=== PATIENT | female | born 1955 | race Caucasian/White ===

== ENCOUNTER → 2016-09-25 | Outpatient (CLI) | payer OTHER ==
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
== END | disposition home or self-care (01) ==
LOC: RADMRIMAIN 15:35
PROVIDERS: ATTEND Family Medicine
DX: R90.82 White matter disease, unspecified (principal)
CPT/HCPCS: 70551

== ENCOUNTER → 2017-03-31 | Outpatient (CLI) | payer OTHER ==
--- NOTE | 2017-04-01 08:17 | MM ---
Reason for exam: screening (asymptomatic). Last mammogram was performed 8 years and 9 months ago. History: Family history of breast cancer in 2 aunts and breast cancer in grandmother. Implant Removal of both breasts, 1980. Physical Findings: Nurse did not find any significant physical abnormalities on exam. MG Screening Mammo w CAD Bilateral CC and MLO view(s) were taken. Prior study comparison: July 12, 2008, bilateral digital screening mammogram. May 19, 2005, mammogram, performed at [facility]. The breast tissue is heterogeneously dense. This may lower the sensitivity of mammography. No suspicious abnormality in the left breast. Superior right breast asymmetry over the pectoralis muscle at posterior depth. These results were verbally communicated with the patient and result sheet given to the patient on 03/31/17. ASSESSMENT: Incomplete: need additional imaging evaluation, BI-RAD 0 RECOMMENDATION: Special view mammogram of the right breast. If lesion persists on supplemental views, image directed ultrasound is recommended. [facility] will attempt to contact patient to return for supplemental views and ultrasound if indicated.
--- NOTE | 2017-04-01 08:19 | MM ---
Reason for exam: additional evaluation requested from abnormal screening. Last mammogram was performed 8 years and 9 months ago. History: Family history of breast cancer in 2 aunts and breast cancer in grandmother. Implant Removal of both breasts, 1980. Physical Findings: Nurse did not find any significant physical abnormalities on exam. MG Work Up Mamm w CAD RT LM, XCCL, and MLO view(s) were taken of the right breast. Prior study comparison: July 12, 2008, bilateral digital screening mammogram. May 19, 2005, mammogram, performed at [facility]. The breast tissue is heterogeneously dense. This may lower the sensitivity of mammography. Superior breast asymmetry improves on spot compression and appears as fibroglandular tissue. Precautionary ultrasound was performed. These results were verbally communicated with the patient and result sheet given to the patient on 03/31/17. ASSESSMENT: Incomplete: need additional imaging evaluation, BI-RAD 0 RECOMMENDATION: Ultrasound of the right breast. (upper outer quadrant)
--- NOTE | 2017-04-01 08:25 | USB ---
Reason for exam: additional evaluation requested from abnormal screening. History: Family history of breast cancer in 2 aunts and breast cancer in grandmother. Implant Removal of both breasts, 1980. US Breast Workup Limited RT Right breast ultrasound demonstrates no cystic or solid lesion seen. No cystic or solid masses. No suspicious sonographic finding. These results were verbally communicated with the patient and result sheet given to the patient on 03/31/17. ASSESSMENT: Negative, BI-RAD 1 RECOMMENDATION: Return to routine screening mammogram schedule for both breasts.
== END | disposition home or self-care (01) ==
LOC: RADMAMWWP 14:45
PROVIDERS: ATTEND Family Medicine
DX: Z12.31 Encounter for screening mammogram for malignant neoplasm of breast (principal); R92.8 Other abnormal and inconclusive findings on diagnostic imaging of breast
CPT/HCPCS: 76642; G0202; G0206

== ENCOUNTER → 2017-07-01 | Outpatient (CLI) | payer OTHER ==
--- NOTE | 2017-07-01 16:04 | CT ---
EXAMINATION TYPE: CT brain wo con DATE OF EXAM: 07/01/2017 COMPARISON: 04/29/2016 INDICATION: Headache, dizziness and visual changes. DLP: 1122.10 mGycm, Automated exposure control for dose reduction was used. CONTRAST: None CT of the brain is performed utilizing 3 mm thick sections through the posterior fossa and 3 mm thick sections through the remaining calvarium. Study is performed within 24 hours of arrival to the hosp [facility]. No abnormal hyperdensity is present to suggest an acute intracranial hemorrhage. No mass lesion is evident. No acute infarcts are evident. Ventricles and sulci are appropriate for the patient age. Paranasal sinuses and mastoid air cells within the [id number] are clear. IMPRESSIONS: 1. Normal CT Brain
== END | disposition home or self-care (01) ==
LOC: RADCTMAIN 15:22
PROVIDERS: ATTEND Psychiatry & Neurology Neurology
DX: R51 Headache (principal); H53.8 Other visual disturbances
CPT/HCPCS: 70450

== ENCOUNTER → 2017-07-17 | Outpatient (CLI) | payer OTHER ==
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
== END | disposition home or self-care (01) ==
LOC: RADMRIMAIN 16:06
PROVIDERS: ATTEND Psychiatry & Neurology Neurology
DX: M48.04 Spinal stenosis, thoracic region (principal); M40.205 Unspecified kyphosis, thoracolumbar region; M46.94 Unspecified inflammatory spondylopathy, thoracic region; S32.029A Unspecified fracture of second lumbar vertebra, initial encounter for closed fracture; Z98.890 Other specified postprocedural states
CPT/HCPCS: 82565; 72157; 72158; 36415; A9581

== ENCOUNTER 2017-08-14 14:40 | Emergency (ER) | payer OTHER ==
[2017-08-14 15:07] VITALS: RESP 16
--- NOTE | 2017-08-14 15:21 | ED ---
General Adult HPI - General Chief complaint: Back Pain/Injury Stated complaint: Back pain Time Seen by Provider: 08/14/17 15:12 Source: patient, RN notes reviewed Mode of arrival: wheelchair Limitations: no limitations - History of Present Illness Initial comments: Patient 61-year-old female who presents emergency room today with chief complaint of increased lower back pain over the last few weeks. She does admit that she was doing her exercises at home a few weeks ago when she was slowing herself down to the floor in her back hit the edge of the bed. She does have a history of scoliosis and she states there is a phone that sticks out and she is more tender now. She states it seems to be in a different spot. Patient states that over the past 3 weeks has not gotten any better. Patient denies any other symptoms. Patient denies any recent fever, chills, shortness of breath , chest pain, numbness or tingling, headaches or visual changes, or any other complaints. - Related Data Home Medications Medication Instructions Recorded Confirmed ALPRAZolam 1 mg PO Q4H PRN 09/18/14 08/14/17 Methadone [Dolophine] 20 mg PO TID 09/18/14 08/14/17 Simvastatin [Zocor] 20 mg PO HS 09/18/14 08/14/17 cloNIDine HCL [Catapres] 0.2 mg PO DAILY 04/29/16 08/14/17 Butalb/APAP/Caff 50-325-40Mg 1 tab PO Q4H PRN 08/14/17 08/14/17 [Fioricet 50-325-40] DULoxetine HCL [Cymbalta] 30 mg PO HS 08/14/17 08/14/17 DULoxetine HCL [Cymbalta] 60 mg PO DAILY 08/14/17 08/14/17 Promethazine [Phenergan] 25 mg PO Q4HR PRN 08/14/17 08/14/17 Ranitidine HCl [Zantac] 150 mg PO BID 08/14/17 08/14/17 Topiramate [Topamax] 50 mg PO BID 08/14/17 08/14/17 Allergies Allergy/AdvReac Type Severity Reaction Status Date / Time nickel Allergy Itching Verified 08/14/17 15:23 Review of Systems ROS Statement: Those systems with pertinent positive or pertinent negative responses have been documented in the HPI. ROS Other: All systems not noted in ROS Statement are negative. Past Medical History Past Medical History: Hyperlipidemia, Hypertension History of Any Multi-Drug Resistant Organisms: None Reported Past Surgical History: Back Surgery, Orthopedic Surgery Past Psychological History: No Psychological Hx Reported Smoking Status: Former smoker Past Alcohol Use History: None Reported Past Drug Use History: Marijuana General Exam - General Exam Comments Initial Comments: General: The patient is awake and alert, in no distress, and does not appear acutely ill. Eye: Pupils are equal, round and reactive to light, extra-ocular movements are intact. No nystagmus. There is normal conjunctiva bilaterally. No signs of icterus. Ears, nose, mouth and throat: There are moist mucous membranes and no oral lesions. Neck: The neck is supple, there is no tenderness or JVD. Cardiovascular: There is a regular rate and rhythm. No murmur, rub or gallop is appreciated. Respiratory: Lungs are clear to auscultation, respirations are non-labored, breath sounds are equal. No wheezes, stridor, rales, or rhonchi. Musculoskeletal: Normal ROM. Scoliosis to the right. Patient does have tenderness over T8 to T10. Strength 5/5. Sensation intact. Pulses equal bilaterally 2+. Neurological: A&O x 3. CN II-XII intact, There are no obvious motor or sensory deficits. Coordination appears grossly intact. Speech is normal. Skin: Skin is warm and dry and no rashes or lesions are noted. Psychiatric: Cooperative, appropriate mood & affect, normal judgment. Limitations: no limitations Course Vital Signs 08/14/17 15:04 Temperature 97.8 F Pulse Rate 78 Respiratory 16 Rate Blood Pressure 107/54 O2 Sat by Pulse 99 Oximetry Medical Decision Making - Medical Decision Making Case discussed in detail with attending physician Dr. Finn. Patient's x-ray of thoracic spine shows no acute changes. X-rays of the lumbar spine show postoperative change. Chronic-appearing severe compression deformity with vertebroplasty at L2. Patient denies any bowel or bladder incontinence retention. Denies any saddle anesthesia. Denies any lumbar radiculopathy. At this time patient will be discharged home to follow-up with her family doctor and surgeon in the next 2 days. Advised that she should have a MRI obtained for further evaluation. Advised that she should return to the emergency room if any symptoms increase worsen or for any other concerns. Patient and family states understanding. Disposition Clinical Impression: Low back pain Disposition: HOME SELF-CARE Condition: Good Instructions: Acute Low Back Pain (ED) Additional Instructions: Please follow-up with the orthopedic surgeon and family doctor over the next 2 days as discussed. As discussed need of MRI. Please return to emergency room if the symptoms increase or worsen or for any other concerns. Referrals: Marisol Villalobos MD [Primary Care Provider] - 1-2 days Time of Disposition: 16:41
--- NOTE | 2017-08-14 16:04 | XR ---
EXAM TYPE: LUMBAR SPINE X RAY SERIES COMPARISON: 06/02/2016 HISTORY: Pain TECHNIQUE: 4 views are submitted. FINDINGS: Postsurgical changes are noted. There is a severe compression deformity of vertebroplasty the approxi mate level of L2. This is new from the prior exam. Atherosclerotic change of the aorta noted. There i s diffuse osteopenia. Degenerative disc disease at all levels. IMPRESSION: 1. Postoperative change. 2. Chronic appearing severe compression deformity with vertebroplasty L2. Correlate clinically as por tions of the vertebroplasty material appear to extend toward the disc space.
--- NOTE | 2017-08-14 16:05 | XR ---
EXAMINATION TYPE: XR thoracic spine complete DATE OF EXAM: 08/14/2017 CLINICAL HISTORY: Mid back pain for years. TECHNIQUE: Frontal, lateral, and swimmer's view of thoracic spine are obtained. COMPARISON: Thoracic spine MRI July 17, 2017. FINDINGS: Thoracic spine redemonstrate stable and straightened alignment distally without evidence of acute fracture or dislocation. There is anterior fusion plate C6-T1 level with artificial disc mater ial redemonstrated. Posterior interpedicular rods and screws transfixing T12-L1 levels redemonstrated . Vertebral body heights and disc space heights are preserved in between. IMPRESSION: No acute fracture or dislocation is seen in the thoracic spine. No significant change fr om recent MRI.
[2017-08-14] MEDS ORDERED: MORPHINE SULFATE 4 MG/ML SYRINGE IM STA (16:37)
[2017-08-14 17:02] VITALS: BP 106/60; PULSE 65; TEMP 97.9
== END 2017-08-14 17:00 | disposition home or self-care (01) ==
LOC: EC 14:40
DX: M54.5 Low back pain (principal); E78.5 Hyperlipidemia, unspecified; I10 Essential (primary) hypertension; M41.9 Scoliosis, unspecified; Z87.891 Personal history of nicotine dependence; Z79.899 Other long term (current) drug therapy; Z88.8 Allergy status to other drugs, medicaments and biological substances; Z98.890 Other specified postprocedural states
CPT/HCPCS: 72072; 72100; 99283; 96372; J2270

== ENCOUNTER → 2017-08-26 | Outpatient (CLI) | payer OTHER ==
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
== END | disposition home or self-care (01) ==
LOC: RADCTMAIN 13:49
PROVIDERS: ATTEND Psychiatry & Neurology Neurology
DX: M48.04 Spinal stenosis, thoracic region (principal); M43.8X6 Other specified deforming dorsopathies, lumbar region; G95.29 Other cord compression; M40.295 Other kyphosis, thoracolumbar region
CPT/HCPCS: 72128; 72131

== ENCOUNTER → 2017-10-16 | Outpatient (CLI) | payer OTHER ==
--- NOTE | 2017-10-17 10:19 | MR ---
EXAMINATION TYPE: MR lumbar spine wo/w con DATE OF EXAM: 10/16/2017 3:54 PM COMPARISON: 2-18 HISTORY: Lumbago CONTRAST: The patient was injected with 6.5 mL intravenous Gadavist gadolinium contrast. Multiplanar, MultiSpin echo imaging of the lumbar spine was performed. L1-L2: Moderate disc desiccation noted. Saturated kyphosis centered at this level secondary to chroni c loss of height of L2 estimated at approximately 50% and stable from prior examination. L2 vertebrop lasty change. No herniation, protrusion or disc bulging. No canal stenosis is present. Foramina are patent bilaterally. L2-L3: Fusion changes noted. Intervertebral body spacer noted. Posterocentral hypertrophic change per sists with mild effacement ventral thecal sac. No central stenosis or recurrent disease. Decompressiv e laminectomy changes noted. L3-L4: Moderate disc desiccation identified. No evidence for disc herniation or protrusion. No centra l stenosis. Facet joint arthropathy without evidence for foraminal encroachment. L4-L5: Moderate disc desiccation identified. No evidence for disc herniation or protrusion. No centra l stenosis. Facet joint arthropathy without evidence for foraminal encroachment. L5-S1: Fusion changes noted with pedicular screws in place. Alignment is anatomic. Severe disc desicc ation with circumferential disc bulge greatest posteriorly. No evidence for central stenosis or recur rent disease. Facet joint arthropathy resulting in mild bilateral foraminal encroachment. Vertically oriented S1-S2 stabilization screw. No pathologic enhancement identified following contrast administration. No paraspinal masses are rubina ntified. Conus medullaris has a normal appearance. IMPRESSION: 1. Stable multilevel degenerative disc disease and postoperative change. 2. Stable compression fracture of L2 chronic in nature with loss of height estimated at 50%. Exaggera vinay kyphosis at this level is also stable.
== END | disposition home or self-care (01) ==
LOC: RADMRIMAIN 12:21
PROVIDERS: ATTEND Family Medicine
DX: S32.029A Unspecified fracture of second lumbar vertebra, initial encounter for closed fracture (principal); M51.16 Intervertebral disc disorders with radiculopathy, lumbar region; M53.86 Other specified dorsopathies, lumbar region; Z98.890 Other specified postprocedural states
CPT/HCPCS: 82565; 84520; 72158; A9581

== ENCOUNTER → 2018-05-21 | Outpatient (CLI) | payer OTHER ==
[2018-05-21 15:51] LABS: Basophils # (A) 0.1 k/uL (0-0.2); Basophils % (A) 1 %; Eosinophils # (A) 0.1 k/uL (0-0.7); Eosinophils % (A) 1 %; HCT 42.9 % (34.0-46.0); HGB 12.9 gm/dL (11.4-16.0); Hypochromasia Slight; Lymphocytes # (A) 1.5 k/uL (1.0-4.8); Lymphocytes % (A) 26 %; MCH 27.7 pg (25.0-35.0); MCHC 30.2 g/dL (31.0-37.0); Mean Platelet Volume 6.4; Monocytes # (A) 0.3 k/uL (0-1.0); Monocytes % (A) 5 %; Neutrophils # (A) 3.9 k/uL (1.3-7.7); Neutrophils % (A) 67 %; Platelet Count 248 k/uL (150-450); RBC 4.66 m/uL (3.80-5.40); RDW 13.4 % (11.5-15.5); WBC 5.8 k/uL (3.8-10.6)
[2018-05-21 19:04] LABS: Iron Saturation 21.22 (12.00-45.00)
[2018-05-21 19:12] LABS: Vitamin D 25 Hydroxy 22.4 ng/mL (30.0-100.0)
[2018-05-21 20:50] LABS: Albumin 4.6 g/dL (3.80-4.90); Albumin/Globulin Ratio 2.19 (1.20-2.10); Anion Gap 6.2 mmol/L (4.00-12.00); Calcium 9.7 mg/dL (8.7-10.3); Carbon Dioxide 29.8 mmol/L (21.6-31.8); Globulin 2.1 g/dL (2.1-3.7); Potassium 4.5 mmol/L (3.5-5.5); Total Bilirubin 0.3 mg/dL (0.2-1.2); Total Protein 6.7 g/dL (6.2-8.2)
== END | disposition home or self-care (01) ==
LOC: LABWHC1 15:11
PROVIDERS: ATTEND Psychiatry & Neurology Pain Medicine
DX: G25.81 Restless legs syndrome (principal); E03.9 Hypothyroidism, unspecified; E55.9 Vitamin D deficiency, unspecified
CPT/HCPCS: 36415; 80053; 82306; 82607; 82728; 83540; 83550; 84439; 84443; 84466; 84481; 85025

== ENCOUNTER → 2018-10-18 | Outpatient (CLI) | payer OTHER ==
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
--- NOTE | 2018-10-20 08:48 | MM ---
Reason for exam: screening (asymptomatic). Last mammogram was performed 1 year and 7 months ago. History: Family history of breast cancer in 2 aunts and breast cancer in grandmother. Implant Removal of both breasts, 1980. Physical Findings: A clinical breast exam by your physician is recommended on an annual basis and results should be correlated with mammographic findings. MG Screening Mammo w CAD Bilateral CC and MLO view(s) were taken. Prior study comparison: March 31, 2017, right breast MG work up mamm w CAD RT. March 31, 2017, bilateral MG screening mammo w CAD. The breast tissue is extremely dense which could obscure a lesion on mammography. Stable fat necrosis calcifications posterior right breast, smaller left breast unchanged. No significant changes when compared with prior studies. ASSESSMENT: Negative, BI-RAD 1 RECOMMENDATION: Routine screening mammogram of both breasts in 1 year.
== END | disposition home or self-care (01) ==
LOC: RADBDWWP 15:56
PROVIDERS: ATTEND Family Medicine
DX: Z12.31 Encounter for screening mammogram for malignant neoplasm of breast (principal); Z13.820 Encounter for screening for osteoporosis; M81.8 Other osteoporosis without current pathological fracture; Z80.3 Family history of malignant neoplasm of breast
CPT/HCPCS: 77067; 77080

== ENCOUNTER 2019-01-12 21:08 | Emergency (ER) | payer OTHER ==
[2019-01-12 21:25] VITALS: TEMP 97.9
[2019-01-12] MEDS ORDERED: diphenhydrAMINE 50 MG/ML 1 ML VIAL IVP STA (21:40)
[2019-01-12] MEDS ORDERED: METOCLOPRAMIDE 5 MG/ML 2 ML VIAL IVP STA (21:40)
[2019-01-12] MEDS ORDERED: SODIUM CHLORIDE 0.9% 1,000 ML IV ONE (21:40)
--- NOTE | 2019-01-12 21:59 | ED ---
General Adult HPI - General Chief complaint: Head Injury Stated complaint: fall/poss concussion Time Seen by Provider: 01/12/19 21:27 Source: patient Limitations: no limitations - History of Present Illness Initial comments: 63-year-old female patient presents to the emergency department today for evaluation of headache after experiencing a fall last evening. Patient states that she was walking with her cane, states that she was focusing on and off [place] she didn't trip and she turned her head forward she struck her forehead on a shelf causing her to fall. Patient states she was dazed and did see stars. She denies loss of consciousness. She does not believe she had her head for a second time after the fall. She states that she did strike her right hip and her left ankle. Patient states she is having some achiness to those areas but denies any difficulty with ambulation. Denies any numbness or tingling to the extremities. States she is having blurred vision, dizziness, and nausea. States she has vomited 4 times today. Patient states she is having a pounding headache. States she did try taking her Imitrex and methadone at home without relief. States the pain is located in the back of her head and down into her neck. She denies any radiation of the pain to her arms. Patient denies any recent rash, fever, chills, shortness breath, chest pain, abdominal pain, diarrhea, constipation, back pain, hematuria, dysuria, urinary urgency, urinary frequency, or any other complaints. - Related Data Home Medications Medication Instructions Recorded Confirmed Methadone [Dolophine] 20 mg PO TID 09/18/14 01/12/19 Simvastatin [Zocor] 20 mg PO HS 09/18/14 01/12/19 cloNIDine HCL [Catapres] 0.2 mg PO DAILY 04/29/16 01/12/19 Butalb/APAP/Caff 50-325-40Mg 1 tab PO Q4H PRN 08/14/17 01/12/19 [Fioricet 50-325-40] Promethazine [Phenergan] 25 mg PO Q4HR PRN 08/14/17 01/12/19 Ranitidine HCl [Zantac] 150 mg PO BID 08/14/17 01/12/19 Topiramate [Topamax] 50 mg PO BID 08/14/17 01/12/19 ALPRAZolam [Xanax] 1 mg PO QID 01/12/19 01/12/19 Calcium Carb/Vitamin D3/Vit K1 2 tab PO DAILY 01/12/19 01/12/19 [Viactiv Soft Chew] DULoxetine HCL [Cymbalta] 60 mg PO BID 01/12/19 01/12/19 Dicyclomine [Bentyl] 10 mg PO DAILY PRN 01/12/19 01/12/19 tiZANidine [Zanaflex] 4 mg PO TID 01/12/19 01/12/19 Allergies Allergy/AdvReac Type Severity Reaction Status Date / Time nickel Allergy Itching Verified 01/12/19 21:48 Review of Systems ROS Statement: Those systems with pertinent positive or pertinent negative responses have been documented in the HPI. ROS Other: All systems not noted in ROS Statement are negative. Past Medical History Past Medical History: Hyperlipidemia, Hypertension History of Any Multi-Drug Resistant Organisms: None Reported Past Surgical History: Back Surgery, Orthopedic Surgery Past Psychological History: No Psychological Hx Reported Smoking Status: Former smoker Past Alcohol Use History: None Reported Past Drug Use History: Marijuana General Exam Limitations: no limitations General appearance: alert, in no apparent distress Eye exam: Present: normal appearance, PERRL, EOMI. Absent: scleral icterus, conjunctival injection, periorbital swelling ENT exam: Present: normal exam, normal oropharynx, mucous membranes moist Respiratory exam: Present: normal lung sounds bilaterally. Absent: respiratory distress, wheezes, rales, rhonchi, stridor Cardiovascular Exam: Present: regular rate, normal rhythm, normal heart sounds. Absent: systolic murmur, diastolic murmur, rubs, gallop, clicks GI/Abdominal exam: Present: soft, normal bowel sounds. Absent: distended, tenderness, guarding, rebound, rigid Extremities exam: Present: full ROM, normal capillary refill, other (There is small areas of ecchymosis noted to the left medial ankle, left lateral knee. Tenderness noted over the right hip. Full range of motion intact without pain. Patient able to bear weight. Skin is otherwise pink, warm, dry. Cap refills less than 3 seconds. Pedal and posttibial pulses 2+ and equal bilaterally.). Absent: normal inspection, tenderness, pedal edema, joint swelling, calf tendern ess Back exam: Present: normal inspection, other (Nontender, no step-off, no deformity to firm midline palpation of the thoracic and lumbar vertebrae. ). Absent: vertebral tenderness Neurological exam: Present: alert, oriented X3, CN II-XII intact, other (Strength in all 4 cavities is 5/5.) Psychiatric exam: Present: normal affect, normal mood Skin exam: Present: warm, dry, intact, normal color. Absent: rash Course Vital Signs 01/12/19 01/12/19 21:22 23:51 Temperature 97.9 F Pulse Rate 75 61 Respiratory 17 18 Rate Blood Pressure 107/63 98/66 O2 Sat by Pulse 98 98 Oximetry EKG Findings - EKG Comments: EKG Findings:: EKG obtained at 2226 shows normal sinus rhythm with a ventricular rate of 63, DC interval 164, QRS duration 86, QT 440, QTC 450. No evidence of ST elevation or depression. Medical Decision Making - Medical Decision Making 63-year-old female patient presented to the emergency permit today for evaluation after experiencing a fall with head injury last evening. Physical examination reveals contusions to the left medial ankle and left lateral knee. Neurovascular status is intact. She is neurologically intact with no focal deficits. She did undergo computed tomography scan of the brain and C-spine which were negative for any acute abnormalities. Given patient's symptoms today of dizziness and nausea with 4 episodes of vomiting did perform labs which were unremarkable. EKG showed normal sinus rhythm. Did discuss findings and results with the patient. Did discuss concussion as a cause for her symptoms. She'll be discharged home at this time to follow-up with her primary care physician for recheck in 1-2 days. Return parameters were discussed in detail. She verbalizes understanding and agrees with this plan. - Lab Data Result diagrams: 01/12/19 22:02 01/12/19 22:02 Lab Results 01/12/19 01/12/19 01/12/19 Range/Units 22:02 22:02 22:02 WBC 3.2 L (3.8-10.6) k/uL RBC 3.80 (3.80-5.40) m/uL Hgb 10.3 L (11.4-16.0) gm/dL Hct 33.0 L (34.0-46.0) % MCV 86.9 (80.0-100.0) fL MCH 27.1 (25.0-35.0) pg MCHC 31.2 (31.0-37.0) g/dL RDW 13.2 (11.5-15.5) % Plt Count 182 (150-450) k/uL Neutrophils % 43 % Lymphocytes % 44 % Monocytes % 5 % Eosinophils % 4 % Basophils % 1 % Neutrophils # 1.4 (1.3-7.7) k/uL Lymphocytes # 1.4 (1.0-4.8) k/uL Monocytes # 0.2 (0-1.0) k/uL Eosinophils # 0.1 (0-0.7) k/uL Basophils # 0.0 (0-0.2) k/uL PT 10.5 (9.0-12.0) sec INR 1.0 (<1.2) APTT 26.1 (22.0-30.0) sec Sodium 141 (137-145) mmol/L Potassium 3.5 (3.5-5.1) mmol/L Chloride 107 (98-107) mmol/L Carbon Dioxide 28 (22-30) mmol/L Anion Gap 6 mmol/L BUN 11 (7-17) mg/dL Creatinine 1.08 H (0.52-1.04) mg/dL Est GFR (CKD-EPI)AfAm 63 (>60 ml/min/1.73 sqM) Est GFR (CKD-EPI)NonAf 55 (>60 ml/min/1.73 sqM) Glucose 98 (74-99) mg/dL Calcium 9.3 (8.4-10.2) mg/dL Total Bilirubin 0.2 (0.2-1.3) mg/dL AST 23 (14-36) U/L ALT 13 (9-52) U/L Alkaline Phosphatase 55 (38-126) U/L Troponin I (0.000-0.034) ng/mL Total Protein 6.4 (6.3-8.2) g/dL Albumin 3.9 (3.5-5.0) g/dL Lipase 36 (23-300) U/L 01/12/19 Range/Units 22:02 WBC (3.8-10.6) k/uL RBC (3.80-5.40) m/uL Hgb (11.4-16.0) gm/dL Hct (34.0-46.0) % MCV (80.0-100.0) fL MCH (25.0-35.0) pg MCHC (31.0-37.0) g/dL RDW (11.5-15.5) % Plt Count (150-450) k/uL Neutrophils % % Lymphocytes % % Monocytes % % Eosinophils % % Basophils % % Neutrophils # (1.3-7.7) k/uL Lymphocytes # (1.0-4.8) k/uL Monocytes # (0-1.0) k/uL Eosinophils # (0-0.7) k/uL Basophils # (0-0.2) k/uL PT (9.0-12.0) sec INR (<1.2) APTT (22.0-30.0) sec Sodium (137-145) mmol/L Potassium (3.5-5.1) mmol/L Chloride (98-107) mmol/L Carbon Dioxide (22-30) mmol/L Anion Gap mmol/L BUN (7-17) mg/dL Creatinine (0.52-1.04) mg/dL Est GFR (CKD-EPI)AfAm (>60 ml/min/1.73 sqM) Est GFR (CKD-EPI)NonAf (>60 ml/min/1.73 sqM) Glucose (74-99) mg/dL Calcium (8.4-10.2) mg/dL Total Bilirubin (0.2-1.3) mg/dL AST (14-36) U/L ALT (9-52) U/L Alkaline Phosphatase (38-126) U/L Troponin I <0.012 (0.000-0.034) ng/mL Total Protein (6.3-8.2) g/dL Albumin (3.5-5.0) g/dL Lipase (23-300) U/L - Radiology Data Radiology results: report reviewed, image reviewed CT brain and C-spine without contrast was obtained. Report was reviewed in its entirety. Impression by Dr. Canseco shows no acute traumatic abnormality in the C- spine. No acute intracranial abnormality. Disposition Clinical Impression: Concussion, Multiple contusions Disposition: HOME SELF-CARE Condition: Good Instructions (If sedation given, give patient instructions): Concussion (ED), Contusion in Adults (ED) Additional Instructions: Rest, continue home medication for pain. Avoid vigorous physical or mental activity. Avoid prolonged use of screens including television, computer, and phone. Follow-up with your primary care physician for recheck in 1-2 days. Return to the emergency department immediately for any new, worsening, or concerning symptoms. Is patient prescribed a controlled substance at d/c from ED?: No Referrals: Marisol Villalobos MD [Primary Care Provider] - 1-2 days Time of Disposition: 23:28
[2019-01-12 22:23] LABS: Albumin 3.9 g/dL (3.5-5.0); Calcium 9.3 mg/dL (8.4-10.2); Potassium 3.5 mmol/L (3.5-5.1); Total Bilirubin 0.2 mg/dL (0.2-1.3); Total Protein 6.4 g/dL (6.3-8.2)
[2019-01-12 22:30] LABS: Partial Thromboplastin Time 26.1 sec (22.0-30.0); Prothrombin Time 10.5 sec (9.0-12.0)
[2019-01-12 22:32] LABS: Basophils % (A) 1 %; Eosinophils # (A) 0.1 k/uL (0-0.7); Eosinophils % (A) 4 %; HGB 10.3 gm/dL (11.4-16.0); Lymphocytes # (A) 1.4 k/uL (1.0-4.8); Lymphocytes % (A) 44 %; MCH 27.1 pg (25.0-35.0); MCHC 31.2 g/dL (31.0-37.0); MCV 86.9 fL (80.0-100.0); Mean Platelet Volume 7.2; Monocytes # (A) 0.2 k/uL (0-1.0); Monocytes % (A) 5 %; Neutrophils # (A) 1.4 k/uL (1.3-7.7); Neutrophils % (A) 43 %; Platelet Count 182 k/uL (150-450); RDW 13.2 % (11.5-15.5); WBC 3.2 k/uL (3.8-10.6)
--- NOTE | 2019-01-12 23:02 | CT ---
EXAM: CT Head Without Intravenous Contrast CLINICAL HISTORY: ITS.REASON CT Reason: Pain TECHNIQUE: Axial computed tomography images of the head/brain without intravenous contrast. CTDI is 60.3 mGy and DLP is 1253.3 mGy-cm. This CT exam was performed using one or more of the following dose reduction techniques: automated exposure control, adjustment of the mA and/or kV according to patient size, and/or use of iterative reconstruction technique. COMPARISON: CT head on 07/01/2017 FINDINGS: Brain: No acute infarct or hemorrhage. No extra-axial fluid collection. No mass effect or midline shift. Ventricles and sulci: Normal. No ventriculomegaly or intraventricular hemorrhage. Skull: Normal. No bony lesion or fracture. Subcutaneous tissues: Normal. Sinuses: Polyp versus mucous retention cyst in the mid left ethmoid air cells. Mastoid air cells: Normal. Orbits: Grossly unremarkable. IMPRESSION: No acute intracranial abnormality. EXAM: CT Cervical Spine Without Intravenous Contrast CLINICAL HISTORY: ITS.REASON CT Reason: Pain TECHNIQUE: Axial computed tomography images of the cervical spine without intravenous contrast. CTDI is 42.0 mGy and DLP is 1748.2 mGy-cm. This CT exam was performed using one or more of the following dose reduction techniques: automated exposure control, adjustment of the mA and/or kV according to patient size, and/or use of iterative reconstruction technique. COMPARISON: CT C-spine on 04/29/2016 FINDINGS: Bones: Stable fusion changes from C5-C7 with corpectomy changes at C5-6. No acute fracture or bony lesion. Disc spaces: Stable mild anterolisthesis of C7 on T1. Degenerative changes of the spine. Soft tissues: Normal. Other: Polyp versus mucous retention cyst in the left ethmoid air cells. Heterogeneous thyroid which could be further evaluated with nonemergent dedicated ultrasound if clinically indicated. Mild atherosclerotic changes of the vasculature. IMPRESSION: No acute traumatic abnormality.
[2019-01-12] MEDS ORDERED: MORPHINE SULFATE 2 MG/ML SYRINGE IVP STA (23:31)
[2019-01-12] MEDS ORDERED: KETOROLAC 30 MG/ML 1 ML VIAL IVP STA (23:31)
[2019-01-12 23:52] VITALS: BP 98/66; PULSE 61; RESP 18
== END 2019-01-13 00:47 | disposition home or self-care (01) ==
LOC: EC 21:08
DX: S06.0X0A Concussion without loss of consciousness, initial encounter (principal); S90.02XA Contusion of left ankle, initial encounter; S80.02XA Contusion of left knee, initial encounter; I10 Essential (primary) hypertension; E78.5 Hyperlipidemia, unspecified; Z79.899 Other long term (current) drug therapy; Z91.048 Other nonmedicinal substance allergy status; Z87.891 Personal history of nicotine dependence; W18.09XA Striking against other object with subsequent fall, initial encounter; Y93.01 Activity, walking, marching and hiking
CPT/HCPCS: 36415; 93005; 80053; 83690; 84484; 85025; 85610; 85730; 72125; 70450; 99284; 96374; 96375 ×3; 96361 ×3; J1200; J2765; J1885; J2270

== ENCOUNTER → 2019-02-09 | Outpatient (CLI) | payer OTHER ==
--- NOTE | 2019-02-10 07:36 | US ---
EXAMINATION TYPE: US carotid duplex BILAT DATE OF EXAM: 02/09/2019 COMPARISON: NONE CLINICAL HISTORY: R55 SYNCOPE. Syncope EXAM MEASUREMENTS: RIGHT: Peak Systolic Velocity (PSV) cm/sec ----- Right CCA: 108.0 ----- Right ICA: 94.1 ----- Right ECA: 82.6 ICA/CCA ratio: 0.9 RIGHT: End Diastole cm/sec ----- Right CCA: 33.9 ----- Right ICA: 41.3 ----- Right ECA: 14.5 LEFT: Peak Systolic Velocity (PSV) cm/sec ----- Left CCA: 90.6 ----- Left ICA: 118.5 ----- Left ECA: 77.5 ICA/CCA ratio: 1.3 LEFT: End Diastole cm/sec ----- Left CCA: 27.0 ----- Left ICA: 52.4 ----- Left ECA: 16.7 VERTEBRALS (direction of flow): Right Vertebral: Antegrade Left Vertebral: Antegrade Rhythm: Normal Bilateral intimal thickening, plaque bilateral bulb, no elevated velocities, no significant stenosis. IMPRESSION: Mild degree of grayscale atheromatous plaquing with no sonographically evident hemodynam ically significant stenosis within either visualized carotid arterial system. Criteria for Assigning % of Stenosis / Diameter reduction (Estimation based on the indirect measurements of the internal carotid artery velocities (ICA PSV). 1. Normal (no stenosis)=ICA PSV < 125 cm/s: ratio < 2.0: ICA EDV<40 cm/s. 2. Less than 50% stenosis=ICA PSV < 125 cm/s: ratio < 2.0: ICA EDV<40 cm/s. 3. 50 to 69% stenosis=ICA PSV of 125 to 230 cm/s: ration 2.0 ? 4.0: ICA EDV 40-100 cm/s. 4. Greater than 70% stenosis to near occlusion= ICA PSV > 230 cm/s: ratio > 4.0: ICA EDV > 100 cm/s. 5. Near occlusion= ICA PSV velocities may be low or undetectable: variable ratio and ICA EDV. 6. Total occlusion=unable to detect flow.
== END | disposition home or self-care (01) ==
LOC: RADUSWWP 16:09
PROVIDERS: ATTEND Family Medicine
DX: I65.23 Occlusion and stenosis of bilateral carotid arteries (principal)
CPT/HCPCS: 93880

== ENCOUNTER → 2019-08-23 | Day surgery (SDC) | payer OTHER ==
[2019-08-19 12:15] VITALS: BMI 25.0
[~2019-08-23] MED LIST: BENZOCAINE SPRAY 1 CAN TOPICAL ONE; MIDAZOLAM 2 MG/2 ML VIAL IVP ONE; SODIUM CHLORIDE 0.9% 1,000 ML IV ONE; fentaNYL (PF) 50 MCG/ML 2 ML AMP IVP ONE; fentaNYL (PF) 50 MCG/ML 2 ML AMP ONE
[2019-08-23 12:42] VITALS: RESP 16; TEMP 98.8
[2019-08-23] MEDS: MIDAZOLAM 2 MG/2 ML VIAL IVP ONE ×3 (12:52→13:01)
--- NOTE | 2019-08-23 14:05 | EST ---
EXERCISE STRESS This transesophageal echocardiogram was performed to assess the mitral regurgitation. Patient was given sedation with Versed and fentanyl and transesophageal echocardiogram was performed without any complications. The left ventricular chamber is normal in size with a normal left ventricular systolic function. Estimated ejection fraction 60%-65%. Left atrium is mildly enlarged. Right ventricle, right atrial chamber are normal in size. Mitral valve morphology is normal. There is suggestion of mild degree of mitral valve prolapse. There is a mild to moderate mitral regurgitation noted. There is no evidence of reversal of flow in the pulmonary vein and systolic pulmonary vein flow is greater than the diastolic flow. Left atrial appendage is clear. Right ventricle, right atrial chamber are normal in size. Interatrial septum is intact. There is no evidence of PFO. Descending thoracic aorta shows mild degree of atherosclerotic plaque. IMPRESSION: 1. The mitral valve is mildly thickened and there is a suggestion of mild degree of mitral valve prolapse. The color Doppler study shows evidence of moderate degree of mitral regurgitation. There is no evidence of reversal of flow in the pulmonary vein and the systolic flow in the pulmonary vein is greater than the diastolic flow. 2. Left atrium is mildly enlarged. 3. The aortic and tricuspid valve morphology is normal. 4. Interatrial septum is intact. There is no evidence of any patent foramen ovale. There are mild atherosclerotic changes noted in the descending thoracic aorta. MMODL / IJN: [id number] /
[2019-08-23 15:05] VITALS: BP 118/56; PULSE 88
== END ==
LOC: CATHCVL 12:02
PROVIDERS: ATTEND Internal Medicine Cardiovascular Disease
DX: I24.0 Acute coronary thrombosis not resulting in myocardial infarction (principal); I70.0 Atherosclerosis of aorta; I49.3 Ventricular premature depolarization; E78.5 Hyperlipidemia, unspecified; Z82.49 Family history of ischemic heart disease and other diseases of the circulatory system; Z79.1 Long term (current) use of non-steroidal anti-inflammatories (NSAID); Z79.899 Other long term (current) drug therapy
CPT/HCPCS: 93312; 93325; J2250; J3010; 93320

== ENCOUNTER → 2021-03-25 | Outpatient (CLI) | payer MEDICARE, OTHER ==
--- NOTE | 2021-03-26 12:05 | MM ---
Reason for exam: screening (asymptomatic). Last mammogram was performed 2 years and 5 months ago. History: Family history of breast cancer in 2 aunts and breast cancer in grandmother. Implant Removal of both breasts, 1980. Physical Findings: A clinical breast exam by your physician is recommended on an annual basis and results should be correlated with mammographic findings. MG 3D Screening Mammo W/Cad Bilateral CC and MLO view(s) were taken. Prior study comparison: October 18, 2018, bilateral MG screening mammo w CAD. March 31, 2017, right breast MG work up mamm w CAD RT. The breast tissue is heterogeneously dense. This may lower the sensitivity of mammography. Finding #1: There is a 7 mm obscured round mass in the upper quadrant, middle posterior position of the left breast. Finding #2: There are typically benign round calcifications. ASSESSMENT: Incomplete: need additional imaging evaluation, BI-RAD 0 RECOMMENDATION: Special view mammogram and ultrasound of the left breast. [facility] will attempt to contact patient to return for supplemental views and ultrasound.
== END | disposition home or self-care (01) ==
LOC: RADMAMWWP 13:12
PROVIDERS: ATTEND Family Medicine
DX: Z12.31 Encounter for screening mammogram for malignant neoplasm of breast (principal); Z80.3 Family history of malignant neoplasm of breast
CPT/HCPCS: 77063; 77067

== ENCOUNTER → 2021-04-01 | Outpatient (CLI) | payer MEDICARE ==
--- NOTE | 2021-04-01 09:45 | USB ---
Left breast ultrasound INDICATION: Abnormal mammogram COMPARISON: Mammogram same date Targeted left breast ultrasound was performed in the upper outer quadrant, retroareolar region and ax illa. FINDINGS: In the left axillary tail, there is an intramammary lymph node which corresponds to mammographic find ings and is benign. There is no definite sonographic correlate for the palpable abnormality slightly anterior in the left upper outer quadrant. IMPRESSION: 1. Lymph node corresponds to the asymmetry seen on prior mammogram. 2. There is no mammographic or sonographic correlate for the left upper outer palpable abnormality an d clinical follow-up is recommended. BI-RADS 2. Benign. Screening mammogram is recommended in one year.
--- NOTE | 2021-04-01 09:59 | MM ---
Reason for exam: additional evaluation requested from abnormal screening. Last mammogram was performed less than 1 month ago. History: Family history of breast cancer in 2 maternal aunts and breast cancer in maternal grandmother. Implant Removal of both breasts, 1980. Physical Findings: Nurse Summary: nodule in the left breast at 1-3 o'clock (nurse farhan). MG 3D Work Up W/Cad LT LM and XCCL view(s) were taken of the left breast. Prior study comparison: March 25, 2021, bilateral MG 3d screening mammo w/cad. October 18, 2018, bilateral MG screening mammo w CAD. The breast tissue is heterogeneously dense. This may lower the sensitivity of mammography. Left upper outer quadrant posterior asymmetry in a benign lymph node. Targeted left upper outer quadrant ultrasound is recommended for palpable for which there is no mammographic correlate. These results were verbally communicated with the patient and result sheet given to the patient on 04/01/21. ASSESSMENT: Incomplete: need additional imaging evaluation, BI-RAD 0 RECOMMENDATION: Ultrasound of the left breast.
== END | disposition home or self-care (01) ==
LOC: RADMAMWWP 08:36
PROVIDERS: ATTEND Family Medicine
DX: N63.21 Unspecified lump in the left breast, upper outer quadrant (principal)
CPT/HCPCS: 77065; 76642; G0279; 77061

== ENCOUNTER → 2021-05-31 | Outpatient (CLI) | payer MEDICARE ==
[2021-05-31 11:18] LABS: HCT 43.3 % (34.0-46.0); HGB 13.9 gm/dL (11.4-16.0); MCH 29.6 pg (25.0-35.0); MCHC 32.2 g/dL (31.0-37.0); MCV 91.9 fL (80.0-100.0); Mean Platelet Volume 7.1; Platelet Count 199 k/uL (150-450); RBC 4.71 m/uL (3.80-5.40); RDW 13.2 % (11.5-15.5); WBC 6.4 k/uL (3.8-10.6)
[2021-05-31 11:34] LABS: Potassium 3.8 mmol/L (3.5-5.1)
== END | disposition home or self-care (01) ==
LOC: LABPAT 10:12
PROVIDERS: ATTEND Internal Medicine
DX: Z01.818 Encounter for other preprocedural examination (principal); Z01.812 Encounter for preprocedural laboratory examination; I34.0 Nonrheumatic mitral (valve) insufficiency
CPT/HCPCS: 80051; 82565; 84520; 85027; 36415; U0003; C9803; U0005

== ENCOUNTER 2021-06-12 09:46 | Day surgery (SDC) | payer MEDICARE ==
[2021-06-10 09:14] VITALS: BMI 23.5
[~2021-06-12 09:46] MED LIST changes: +ALPRAZolam 0.25 MG TAB PO PRN; +ALPRAZolam 0.5 MG TAB PO PRN; +ASPIRIN 325 MG TAB PO STA; -BENZOCAINE SPRAY 1 CAN TOPICAL ONE; +HEPARIN SODIUM,PORCINE 10,000 UNIT in SODIUM CHLORIDE 0.9% 1,000 ML IRRIGATION PRN; +HEPARIN SODIUM,PORCINE 2,500 UNIT in SODIUM CHLORIDE 0.9% 250 ML IRRIGATION PRN; -MIDAZOLAM 2 MG/2 ML VIAL IVP ONE; +NITROGLYCERIN SL TABS 0.4 MG TAB SUBLINGUAL PRN; -SODIUM CHLORIDE 0.9% 1,000 ML IV ONE; +SODIUM CHLORIDE 0.9% 1,000 ML in EMPTY BAG 1 BAG IV SCH; -fentaNYL (PF) 50 MCG/ML 2 ML AMP IVP ONE; -fentaNYL (PF) 50 MCG/ML 2 ML AMP ONE
[2021-06-12 10:14] VITALS: TEMP 98.1
[2021-06-12] MEDS ORDERED: fentaNYL (PF) 50 MCG/ML 2 ML AMP ONE (11:41)
[2021-06-12] MEDS ORDERED: IV FLUID CONTINUATION 1,000 ML IV ONE (11:45)
[2021-06-12] MEDS ORDERED: VERAPAMIL 2.5 MG/ML 2 ML AMP ONE (11:46)
[2021-06-12] MEDS ORDERED: LIDOCAINE 1% INJ 10MG/ML (20 ML MDV) ONE (11:46)
[2021-06-12] MEDS ORDERED: BENZOCAINE SPRAY 1 CAN MUCOUS MEM ONE (12:00)
[2021-06-12] MEDS ORDERED: fentaNYL (PF) 50 MCG/ML 2 ML AMP IV ONE (12:00)
[2021-06-12] MEDS ORDERED: MIDAZOLAM 2 MG/2 ML VIAL IV ONE (12:00)
[2021-06-12 12:10] VITALS: RESP 16
[2021-06-12] MEDS ORDERED: SODIUM CHLORIDE 0.9% 1,000 ML IV ONE (12:37)
[2021-06-12] MEDS: LIDOCAINE 1% INJ 10MG/ML (20 ML MDV) SQ ONE ×2 (12:46→12:48)
[2021-06-12] MEDS ORDERED: VERAPAMIL SYRINGE (5 MG/10 ML) INTRAARTER ONE (12:48)
[2021-06-12] MEDS ORDERED: HEPARIN SODIUM 1,000 UN/ML (10ML VL) ONE (13:00)
[2021-06-12] MEDS ORDERED: HEPARIN SODIUM 1,000 UN/ML (10ML VL) IVP ONE (13:02)
[2021-06-12] MEDS ORDERED: IOPAMIDOL-370 125ML BTL INJ ONE (13:10)
[2021-06-12 13:11] LABS: O2 Sat Blood Gas 96.6 %
--- NOTE | 2021-06-12 13:20 | P.TEE ---
Description of Procedure(s): Procedure performed: Transesophageal Echocardiogram with color flow doppler, pulsed wave doppler and continuous wave doppler, moderate conscious sedation Moderate conscious sedation: Moderate conscious sedation was supplied with direct supervision of myself using Versed and Fentanyl. Complications: none Indications: Moderate to severe mitral regurgitation History: Patient is a pleasant 65-year-old female who has been monitored for mitral regurgitation with most recent echo concerning for severe mitral regurgitation. She has been having some more atypical chest pain and arm pain as well as dyspnea and therefore ROBERT and heart catheterization was recommended to further identify. PROCEDURE: After the risks, benefits and alternatives of the above mentioned procedure was explained in detail with the patient, informed consent was obtained. Patient was brought to the lab in a fasting state. Patient was given IV Versed and Fentanyl for sedation. The throat was sprayed with Hurricane to anesthetize the throat. A lubricated Omni probe was then introduced into the esophagus and stomach and multiple views were obtained. 2D echo with color flow doppler, pulsed wave doppler and continuous wave doppler was utilized. Agitated saline bubbles were injected to assess for any intra-atrial shunt. The probe was then removed. Patient tolerated the procedure well. Patient was transferred to the post procedure area in stable and satisfactory condition. FINDINGS: 1. The aortic valve is tricuspid and functioning normally. 2. 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 There is moderate mitral regurgitation. PISA radius is 0.4cm with Nyquist of 0.44 consistent with mild to moderate mitral regurgitation. There is systolic dominance of the left upper pulmonary vein. 3. Tricuspid valve appears to be normal with trace tricuspid regurgitation. 4. The interatrial septum is intact. No evidence of PFO. 5. Left atrial appendage is free of clot. 6. Left ventricular size and function appears to be normal with ejection fraction 60%.
[2021-06-12 13:21] LABS: O2 Sat Blood Gas 75.5 %
[2021-06-12 13:24] LABS: O2 Sat Blood Gas 77.2 %
[2021-06-12 15:25] VITALS: PULSE 70
[2021-06-12 17:01] VITALS: BP 105/56
--- NOTE | 2021-06-12 18:44 | P.CARDCATH ---
Description of Procedure: PROCEDURES PERFORMED: Left heart catheterization, bilateral coronary angiography, left ventriculogram, right heart catheterization INDICATION: Moderate to severe mitral regurgitation, chest pain and EASLEY concerning for angina HISTORY: Patient is a pleasant 65-year-old female who has been monitored for mitral regurgitation with most recent echo concerning for severe mitral regurgitation. She has been having some more atypical chest pain and arm pain as well as dyspnea and therefore ROBERT and heart catheterization was recommended t o further identify. CONSENT:I have discussed the risks, benefits and alternative therapies for the above-mentioned procedure and for both sedation/analgesia as well as necessary blood product administration, if indicated, as they pertain to this patient. The patient has indicated understanding and acceptance of the risks and procedures discussed. PROCEDURE: After the risks, benefits and alternatives of the above mentioned procedure explained in detail with the patient, informed consent was obtained. Patient was taken to the catheterization lab and prepped and draped in usual fashion. 1% lidocaine was used to anesthetize the right radial artery. A 6- Afghan sheath was placed in the right radial artery using modified Seldinger technique. Left coronary angiography was performed with a 5-Afghan JL 3.5 catheter and right coronary angiography was performed with a 5-Afghan JR5 catheter in various views. A 5-Afghan FR5 catheter was inserted into the left ventricle and pressure measurements were obtained. The right radial sheath was removed and a TR band was placed with hemostasis achieved. The patient tolerated the procedure well. Patient was transported back to the post catheterization holding area in stable condition. A 6Fr sheath was placed in the right brachial vein with ultrasound guidance and Seldinger technique. A 6Fr [place] Zaina catheter was advanced into the RA, RV, PA and PCWP. PA and RA O2 sats were drawn. Thermodilution was performed. The [place] Zaina catheter was removed and the 6Fr sheath was removed and pressure was held with hemostasis achieved. Conscious Sedation: Patient was monitored under the direct supervision of vision of myself for conscious sedation using Versed and fentanyl for a total duration of 27 minutes HEMODYNAMICS: Ao: 154/82 LV: 174/4 LVEDP 21 PCWP: 10, very small V wave of 14mmHg PA: 31/9 RV: 38/1 RA: 5 Right radial O2 sat: 97% PA O2 sat: 76% RA O2 sat: 77% CO ROSSY: 7.98 L/min CI ROSSY: 4.37 L/min/m2 CO thermodilution: 6.52 L/min CI: thermodilution: 3.57 L/min/m2 SELECTIVE CORONARY ARTERIOGRAPHY: LEFT MAIN: The left main is a large caliber vessel which bifurcates into the LAD and circumflex. There is no significant stenosis. LEFT ANTERIOR DESCENDING CORONARY ARTERY: LAD is a large caliber vessel which wraps around to the apex. There is no significant stenosis. LEFT CIRCUMFLEX CORONARY ARTERY: Left circumflex is a moderate caliber vessel without significant stenosis. RIGHT CORONARY ARTERY: The right coronary artery is a large caliber vessel which gives off a PDA and PLV branch and is the dominant vessel. There is no significant stenosis. FINAL IMPRESSION: 1. Normal coronary arteries as described above. 2. Borderline elevated left and normal right sided filling pressures 3. Normal cardiac output 4. Normal EF 60% 5. 1-2+ MR by LV gram PLAN: 1. Aggressive risk factor modification per most recent ACC/AHA guidelines. 2. MR does not appear to be severe and more moderate with no current indication for intervention. 3. Follow-up in the office in 1-2 weeks.
== END 2021-06-12 17:34 | disposition home or self-care (01) ==
LOC: CATHCVL 09:46
PROVIDERS: ATTEND Internal Medicine
DX: I08.1 Rheumatic disorders of both mitral and tricuspid valves (principal); I49.3 Ventricular premature depolarization; I10 Essential (primary) hypertension; E78.5 Hyperlipidemia, unspecified; Z82.49 Family history of ischemic heart disease and other diseases of the circulatory system; Z20.822 Contact with and (suspected) exposure to COVID-19; Z79.899 Other long term (current) drug therapy
CPT/HCPCS: 93312; 93320; 93325; 93460; 85018; 82810; 87635; C1894; C1751; J2250; J2001; J3010; J1644; Q9967

== ENCOUNTER → 2021-12-31 | Outpatient (CLI) | payer MEDICARE, OTHER ==
--- NOTE | 2022-01-01 07:21 | CT ---
EXAMINATION TYPE: CT brain wo con DATE OF EXAM: 12/31/2021 COMPARISON: CT brain 01/12/2019 HISTORY: c/o headache, nausea, dizziness, memory loss, loss of balance, weakness. CT DLP: 1075.4 mGycm Automated exposure control for dose reduction was used. Helical imaging through the brain. FINDINGS: There is no significant interval change. There is no hemorrhage or hydrocephalus. Brain density is st able, periventricular white matter shows patchy low attenuation. The calvarium is intact. Orbits are symmetric. Paranasal sinuses are well aerated with the exception of some inflammatory change in the e thmoids on the left, mastoid air cells are well aerated. IMPRESSION: ESSENTIALLY STABLE BRAIN CT, NONSPECIFIC WHITE MATTER DEMYELINATION MAY BE RELATED TO CHRONIC SMALL V ESSEL ISCHEMIA, BRAIN MRI MAY BE OF BENEFIT.
== END | disposition home or self-care (01) ==
LOC: RADCTMAIN 17:19
PROVIDERS: ATTEND Family Medicine
DX: G93.89 Other specified disorders of brain (principal)
CPT/HCPCS: 70450

== ENCOUNTER 2022-05-21 09:11 | Day surgery (SDC) | payer MEDICARE, OTHER ==
[2022-05-16 15:59] VITALS: BMI 53.7
[~2022-05-21 09:11] MED LIST changes: +ACETAMINOPHEN TAB 500 MG TAB PO PRN; -ALPRAZolam 0.25 MG TAB PO PRN; -ALPRAZolam 0.5 MG TAB PO PRN; -ASPIRIN 325 MG TAB PO STA; +DEXAMETHASONE SOD PHOSPHATE 4 MG/ML 1 ML VIAL IV ONE; -HEPARIN SODIUM,PORCINE 10,000 UNIT in SODIUM CHLORIDE 0.9% 1,000 ML IRRIGATION PRN; -HEPARIN SODIUM,PORCINE 2,500 UNIT in SODIUM CHLORIDE 0.9% 250 ML IRRIGATION PRN; +HEPARIN SODIUM,PORCINE/PF 5,000 UNIT/0.5 ML SYRINGE SQ PRN; +HYDROmorphone 0.5 MG/0.5 ML SYRINGE IVP PRN; +LACTATED RINGERS 1,000 ML IV SCH; +MIDAZOLAM 2 MG/2 ML VIAL IV PRN; -NITROGLYCERIN SL TABS 0.4 MG TAB SUBLINGUAL PRN; +ONDANSETRON 4 MG/2 ML VIAL IVP ONE; -SODIUM CHLORIDE 0.9% 1,000 ML in EMPTY BAG 1 BAG IV SCH
[2022-05-21 10:01] VITALS: RESP 16; TEMP 97.2
[2022-05-21 10:21] LABS: Basophils % (A) 1 %; Eosinophils # (A) 0.2 k/uL (0-0.7); Eosinophils % (A) 4 %; HCT 38.5 % (34.0-46.0); HGB 12.7 gm/dL (11.4-16.0); Hypochromasia Slight; Lymphocytes # (A) 1.1 k/uL (1.0-4.8); Lymphocytes % (A) 28 %; MCHC 33.1 g/dL (31.0-37.0); MCV 90.8 fL (80.0-100.0); Mean Platelet Volume 7.8; Monocytes # (A) 0.2 k/uL (0-1.0); Monocytes % (A) 5 %; Neutrophils # (A) 2.5 k/uL (1.3-7.7); Neutrophils % (A) 61 %; Platelet Count 162 k/uL (150-450); RBC 4.24 m/uL (3.80-5.40); RDW 12.7 % (11.5-15.5); WBC 4.1 k/uL (3.8-10.6)
[2022-05-21 10:25] LABS: Albumin 4.4 g/dL (3.5-5.0); Calcium 9.2 mg/dL (8.4-10.2); Potassium 4.4 mmol/L (3.5-5.1); Total Bilirubin 0.5 mg/dL (0.2-1.3); Total Protein 7.1 g/dL (6.3-8.2)
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
--- NOTE | 2022-05-21 11:17 | P.OP ---
Date of Procedure: 05/21/22 Preoperative Diagnosis: Cholelithiasis Cholecystitis Postoperative Diagnosis: Cholelithiasis Cholecystitis Procedure(s) Performed: Laparoscopic cholecystectomy Anesthesia: AYLA Surgeon: Tyrell López Estimated Blood Loss (ml): 5 Pathology: other (Gallbladder) Condition: stable Disposition: PACU Description of Procedure: The patient was placed on the operating table. The patient received a general endotracheal tube anesthesia. The patients abdomen was prepped and draped in the usual sterile fashion. Through an infraumbilical stab incision, the fascia of the anterior abdominal wall was grasped with a pair of Kochers and then the Veress needle was placed in the peritoneal cavity. Position of the Veress needle was confirmed with positive drop test. The abdomen was then insufflated. After adequate insufflation, the 10 mm trocar was placed in the p eritoneal cavity. Following this the laparoscope was placed in the peritoneal cavity. The patient was placed in the head-up, right side up position and then a 5 mm trocar was placed in the right lateral and right subcostal position under direct visualization. A 8 mm trocar was placed in the epigastric position. The gallbladder was grasped in the fundus and infundibulum. Traction on the ga llbladder was placed in the lateral and the cephalad positions. The triangle of Calot was visualized.. The cystic duct was bluntly dissected until the union of the cystic duct and common bile duct was seen. A critical view of safety was achieved. The cystic duct was then divided and sealed with the Harmonic scissors. A PDS Endoloop was then placed throughout the cystic duct stump. The cystic artery divided and sealed with the Harmonic scissors. The gallbladder was then removed from the liver bed using Harmonic scissors. The gallbladder was then extracted through the epigastric port site. Operative field was checked for any bleeding spots and Harmonic scissors was used to coagulate the liver bed. The abdomen was irrigated. The trocars were removed. The skin was closed using interrupted 3-0 Vicryl suture. Dermabond dressing were applied. The patient tolerated the procedure well.
[2022-05-21] MEDS ORDERED: LIDOCAINE 2% INJ 20 MG/ML (2 ML VIAL) ONE (11:48)
[2022-05-21] MEDS ORDERED: GLYCOPYRROLATE 0.2 MG/ML 2 ML VIAL ONE (11:48)
[2022-05-21] MEDS ORDERED: fentaNYL (PF) 50 MCG/ML 2 ML AMP ONE (11:48)
[2022-05-21] MEDS ORDERED: SUCCINYLCHOLINE CHLORIDE 200 MG/10 ML VIAL IV ONE (11:48)
[2022-05-21] MEDS ORDERED: ROCURONIUM 10 MG/ML (5 ML VIAL) IV ONE (11:48)
[2022-05-21] MEDS ORDERED: NEOSTIGMINE 1 MG/ML 10 ML VIAL ONE (11:48)
[2022-05-21] MEDS ORDERED: PROPOFOL 10 MG/ML 20 ML VIAL IV ONE (11:48)
[2022-05-21] MEDS ORDERED: MIDAZOLAM 2 MG/2 ML VIAL ONE (11:48)
[2022-05-21] MEDS ORDERED: BUPIVACAIN-EPI 0.25%-1:200,000 30 ML VIAL SQ ONE (12:13)
[2022-05-21 14:11] VITALS: BP 119/60; PULSE 68
== END 2022-05-21 14:56 | disposition home or self-care (01) ==
LOC: OR 09:11
PROVIDERS: ATTEND Surgery
DX: K80.10 Calculus of gallbladder with chronic cholecystitis without obstruction (principal); I10 Essential (primary) hypertension; E78.5 Hyperlipidemia, unspecified; F41.9 Anxiety disorder, unspecified; I34.0 Nonrheumatic mitral (valve) insufficiency; Z96.653 Presence of artificial knee joint, bilateral; Z80.8 Family history of malignant neoplasm of other organs or systems; Z79.891 Long term (current) use of opiate analgesic; Z79.52 Long term (current) use of systemic steroids; Z79.02 Long term (current) use of antithrombotics/antiplatelets; Z79.1 Long term (current) use of non-steroidal anti-inflammatories (NSAID); Z79.811 Long term (current) use of aromatase inhibitors; Z91.048 Other nonmedicinal substance allergy status; Z79.899 Other long term (current) drug therapy
CPT/HCPCS: 88304; 80053; 85025; 47562; J2250; J0330; J1100; J2710; J0690; J3010; J2704; J1644; J2001